=== PATIENT | male | born 1955 | race Caucasian/White ===

== ENCOUNTER 2016-06-18 18:35 | Inpatient (IN) | payer SELFPAY ==
--- NOTE | ~2016-06-18 | CN ---
Consultation Report [facility] [address] [facility] [place]. [address] NAME: BRYAN GODDARD : 53 STATUS : ADM IN [facility]#: [id number] AGE: 60 ADM/REG DATE : 06/18/16 MR#: [id number] REPORT SERV DATE: 06/20/16 DICTATED BY: KEITH PORTER DATE: 06/20/16 REPORT STATUS : Draft TRANSCRIBED BY: MODNikos DATE: 06/20/16 INFECTIOUS DISEASE CONSULT DATE OF CONSULTATION: REFERRING PHYSICIAN: Tim Andersen MD REASON FOR CONSULT: Antibiotic treatment for foot osteomyelitis. HISTORY OF PRESENT ILLNESS: 60 years old white male with history of uncontrolled diabetes. He has some chronic bilateral feet ulcers. A couple of weeks ago, he noticed "bug bites" on the posterior aspect of the right lower calf. His put some cream and they went away. He then noticed swelling in the right foot, followed by foul smelling drainage from an ulceration on the right medial aspect of the first metatarsophalangeal joint area. When the swelling along with redness progressed up to the calf, he came to the hospital. He was admitted on the 06/18/2016. He had purulent drainage from this wound and significant swelling of the foot and lower leg. In the ER, some culture was done from the wound that grew group B Strep and bacillus, as well as blood cultures that were negative. Lab work showed WBC of 11, hemoglobin 12, creatinine 1.1, and glucose 317. He was started on vancomycin, cefepime, and Flagyl. He might have had some fever at home. He had no vomiting, diarrhea, no urinary symptoms, no shortness of breath, no other skin lesions. He has a chronic place on the left earlobe that sometimes ulcerates. He has not been under medical care in a while, although, he knew about the diabetes. He was seen by Dr. Alcazar with surgery. We did some local debridement. No new culture was sent. An MRI was done that showed distal first metatarsal edema and probable osteomyelitis extending to the joint. First metatarsophalangeal joint destruction with edema extending to both adjacent bones, including the proximal phalanx consistent with ostia. The left foot MRI showed just some focal cellulitis in the medial aspect of the first metatarsal bone head, but no real osteomyelitis. Chest x-ray showed no active disease. A right leg ultrasound showed no DVT. An arterial ultrasound is pending. PAST MEDICAL HISTORY: Diabetes, he is unaware of a history of hypertension, GERD. 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 He is . He does not smoke or drink alcohol. FAMILY HISTORY: Hypertension and cancer. ALLERGIES: HE APPARENTLY A CHILD, AND HAD A PENICILLIN SHOT THAT WAS CAUSING SUCH SEVERE PAIN THAT HE COULD NOT BREATHE. HOWEVER, HE HAD NO BODY SWELLING, THROAT SWELLING, RASH, OR ITCHING WITH THAT. MEDICATIONS ON ADMISSION: Just p.r.n. Ibuprofen and lots of supplements. Consultation Report [place] [id number] [facility] [place]. [address] NAME: BRYAN GODDARD : 53 STATUS : ADM IN [facility]#: [id number] AGE: 60 ADM/REG DATE : 06/18/16 MR#: [id number] REPORT SERV DATE: 06/20/16 DICTATED BY: KEITH PORTER DATE: 06/20/16 REPORT STATUS : Draft TRANSCRIBED BY: FRANCISCO JAVIER DATE: 06/20/16 PHYSICAL EXAMINATION: GENERAL: He is alert, awake, not in distress. HEENT: No obvious oral thrush. LUNGS: Clear to auscultation. HEART: Regular rhythm. ABDOMEN: Soft, nontender. NECK: With soft large mass on the left posterior side left earlobe with what looks like a little area of skin adherence at the canthus midportion of the earlobe, but no ulceration or drainage that I can see. EXTREMITIES: Left foot with a 1 to 1.5 cm crater or ulcer surrounded by thick callus at the first metatarsophalangeal joint area on the plantar aspect. Right lower leg and foot edema, especially the right great toe with crevasse over the medial aspect of the first metatarsophalangeal joint area, adjacent skin is thickened, and inflamed. It tunnels deeply at least an inch. LABORATORY DATA: Today, creatinine 0.8. WBC 8. ASSESSMENT/PLAN: 1. Right first metatarsophalangeal joint and adjacent bone osteomyelitis with significant cellulitis of the foot and lower leg. 2. Bilateral chronic plantar ulcers. 3. Uncontrolled diabetes. The only culture I have is the wound culture done in the emergency room that is growing group B Strep. However, with bone involvement, he will need bone debridement to healthy bone for A chance of cure. Antibiotic gardner, we will change to Rocephin and Flagyl for now pending further data. I discussed with the patient and the the above, plus obviously need for diabetes/glycemic control. He has not received any antipneumococcal vaccine or flu vaccine. He does not think he had a tetanus vaccine in the last 10 years. So, I recommended all the above. He definitely does not want flu vaccine and he did not want the Tdap, just a tetanus alone, so, I will order that. AMA/FRANCISCO JAVIER Keith Porter M.D. / [id number] CC: Tim Andersen MD
--- NOTE | ~2016-06-18 | IDS ---
Interim Discharge Summary [facility] [address] [place]. [address] NAME: BRYAN GODDARD : 53 STATUS : ADM IN [facility]#: [id number] AGE: 60 ADM/REG DATE : 06/18/16 MR#: [id number] REPORT SERV DATE: 06/27/16 DICTATED BY: SARAI MARTINEZ DATE: 06/27/16 REPORT STATUS : Draft TRANSCRIBED BY: MODNikos DATE: 06/27/16 ADMISSION DATE: 06/18/2016 DISCHARGE DATE: DIAGNOSES: 1. Right great toe osteomyelitis. 2. Right lower extremity/foot cellulitis, resolved. 3. Type 2 diabetes, uncontrolled. 4. Hypertension. CONSULTANTS: 1. General Surgery, Dr. Derian Alcazar. 2. Infectious Disease specialist, Dr. Keith Cortes. PROCEDURES: 1. I and D of right foot abscess on 06/19/2016. 2. On 06/23/2016, removal of spicules of bone from the right MP joint ulcer by Dr. Derian Alcazar, but no complete amputation. HOSPITAL COURSE: A 60 years old male, with a past medical history of type 2 diabetes, not on any medications for diabetes, presented with right great toe ulcer with cellulitis of the right lower extremity. The patient states that he attempted to care for himself as an outpatient without alleviation of his symptoms. He was admitted to the Hospitalist Service and admitted to initially Dr. Andersen. The patient was placed on IV antibiotics, with a General Surgery consultation with Dr. Derian Alcazar. The patient had a MRI of the bilateral lower extremities and the right lower extremity revealed osteomyelitis of the first digit involving the first metatarsal, and proximal phalanx of the right great toe. Arterial Doppler had normal arterial flow of the both lower extremities. Also, infectious Disease was consulted for assistance with the patient's management. The patient refused surgical intervention of removal of infected bone, although, the patient was educated on multiple times by several physicians Dr. Alcazar, Dr. Cortes, and Hospitalists, concerning recommendations of removal of infected bone, and if not removed can cause progressive of disease or sepsis, or spreading of the infection to other areas and the curative approach is best way for removal of inspected bone, however, the patient still refused as well as the . However, the patient would prefer to only treat with antibiotics at this time. Although, he did consent and allow for the general surgeon to gather small spicules of bone for a repeat culture, but no complete amputation. The repeat culture so far is no growth to date. Although, initial I and D grew out multiple bacteria with the Strep agalactiae group B, Providencia, and bacillus. The patient continues on IV Rocephin. Case management is on board assisting with getting approval for outpatient IV antibiotics. Orders will be written by Dr. Keith Cortes for IV antibiotics with recommendation of six weeks course per Infectious Disease specialist. The patient does not have insurance, therefore, it is being charitied IV antibiotics, for which the patient will have to have come to the Infusion Center daily for IV antibiotics infusion, and on weekends will be set up in the CDU unit for six weeks per Infectious Disease recommendations. However, still awaiting a set up and approval at this time and final orders from Dr. Cortes. Also, the patient has been educated on diabetes Interim Discharge Summary [address] [address] NAME: BRYAN GODDARD : 53 STATUS : ADM IN [facility]#: [id number] AGE: 60 ADM/REG DATE : 06/18/16 MR#: [id number] REPORT SERV DATE: 06/27/16 DICTATED BY: SARAI MARTINEZ DATE: 06/27/16 REPORT STATUS : Draft TRANSCRIBED BY: FRANCISCO JAVIER DATE: 06/27/16 management on several occasions, and he states that he used will be more compliant with his diabetes management. The patient will be once again followed by Dr. Tim Andersen, who will attend to Mr. Goddard's care on 06/28/2016. [facility]/FRANCISCO JAVIER Sarai Martinez M.D. / [id number] CC: Sarai Martinez M.D.
--- NOTE | ~2016-06-18 | CN ---
Consultation Report [facility] [address] [place]. [address] NAME: BRYAN GODDARD : 53 STATUS : ADM IN PAT#: [id number] AGE: 60 ADM/REG DATE : 06/18/16 MR#: [id number] REPORT SERV DATE: 06/19/16 DICTATED BY: TANO ALCAZAR III DATE: 06/19/16 REPORT STATUS : Draft TRANSCRIBED BY: MODL DATE: 06/19/16 SURGERY WOUND HEALING CONSULTATION DATE OF CONSULTATION: 06/19/2016 HISTORY OF PRESENT ILLNESS: The patient is a 60-year-old white male, type 2 diabetic in no real control with no particular treatment for his diabetes ever. He now complains of a two- week history of foul smelling drainage and ulceration in the right foot that has "ruined his shoes." The medial aspect of his right foot has had drainage, swelling, and the entire foot is now swollen with redness and now he has noticed pain for the last two to three days. The drainage has been present for two weeks per his history. The patient has a long history of ulceration on the left foot that has been treated off and on with different medications primarily on his own. This ulcer remains active, but is not draining much or tender or notably infected. The patient is on his feet for his work and says he walks up to five miles a day on no special shoes. PAST MEDICAL HISTORY: He has a history of bronchitis, gastroesophageal reflux disease, hypertension. MEDICINES: His only medicines are Advil and undefined [id number] vitamins and supplements. SOCIAL HISTORY: The patient lives with his and denies alcohol or tobacco use. He has never had gout nor has he had a deep venous thrombosis. Denies any particular injury to his feet or legs, but states that he thinks he was bitten by some type of insect a few days ago, which precipitated some of the leg swelling. The patient has a glucometer, but does not check his blood sugars. FAMILY HISTORY: Noncontributory. REVIEW OF SYSTEMS: Consistent with a stable weight, normal bowel activity. No particular systemic complaints other than some fever and chills of late. PHYSICAL EXAMINATION: GENERAL: The patient is a moderately obese white male, in no acute distress. Alert and oriented x3 with a relatively flat affect. HEENT: Unremarkable without lateralization. NECK: Supple. CHEST: Clear. HEART: Regular rate and rhythm. ABDOMEN: Obese, but soft. EXTREMITIES: Grossly anatomic. The left lower extremity had no swelling and there was a Consultation Report [address] [place]. [address] NAME: BRYAN GODDARD : 53 STATUS : ADM IN PAT#: [id number] AGE: 60 ADM/REG DATE : 06/18/16 MR#: [id number] REPORT SERV DATE: 06/19/16 DICTATED BY: TANO ALCAZAR III DATE: 06/19/16 REPORT STATUS : Draft TRANSCRIBED BY: FRANCISCO JAVIER DATE: 06/19/16 good pedal pulse. The dorsalis pedis and posterior tibial on the left with a small ulceration over the left foot plantar surface at the metatarsophalangeal joint. There is 2.5 x 1 x 0.3 cm. There was dried ulceration and callus tissue with minimal slough. This was a nontender area and did not appear to tunnel. The right foot showed 2 to 3+ edema from the knee to the ankle and 3 to 4+ edema from the ankle distally with distortion of the foot secondary to edema and suspected Charcot changes. On the medial aspect of the right foot at the level of the first metatarsal joint, there was an area of seropurulent drainage that was present with erythema and a 0.4 cm opening at the mid portion at the MP joint level. The patient had bounding pulses. The dorsalis pedis and posterior tibial on the right with significant neuropathy, erythema, and toes were mycotic. The x-ray shows disruption of the first metatarsal phalangeal joint read as gout, but probably relates to significant erosive osteomyelitis. The patient's venous Doppler showed no clot. The patient's Gram stain shows gram-positive cocci in pairs. His hemoglobin A1c is 9+. He is presently on vancomycin, meropenem, and Flagyl for broad-spectrum coverage. IMPRESSION: 1. The patient has a significant diabetic ulcer of the right foot with abscess and plantar space abscess with almost certain osteomyelitis involving the metatarsophalangeal joint at least. 2. Sepsis secondary to the above. 3. Chronic ulcer disease of the left foot, which is a diabetic ulcer that is not acute. 4. 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 The patient also has hypertension and extremely poorly controlled diabetes with which the patient is in complete denial. Recommend incision and drainage with local therapy initially. Culture and sensitivity are pending. It has been done. Continue antibiotic therapy. I have explained to the patient that he will likely require at least an amputation of his great toe and distal metatarsal bone, but may require further amputated therapy and certainly he is at risk for losing his entire right foot due to the acuity and the extent of disease. RB/MODL Tano Alcazar III, M.D. / [id number] CC: Tim Andersen MD
--- NOTE | ~2016-06-18 | OP ---
Record Of Operation [facility] [address] [place]. [address] NAME: BRYAN GODDARD : 53 STATUS : ADM IN PAT#: [id number] AGE: 60 ADM/REG DATE : 06/18/16 MR#: [id number] REPORT SERV DATE: 06/19/16 DICTATED BY: TANO ALCAZAR III DATE: 06/19/16 REPORT STATUS : Draft TRANSCRIBED BY: MODL DATE: 06/19/16 DATE OF PROCEDURE: 06/19/2016 PREOPERATIVE DIAGNOSIS: Abscess of the medial aspect of the right foot in diabetic neuropathic patient with probable osteomyelitis. PROCEDURE: Incision and drainage of a medial right foot abscess into the level of the first metatarsal phalangeal joint bone. No culture and sensitivity were repeated since one had just been done within 24 hours in the same area. POSTOPERATIVE DIAGNOSIS: Probable osteomyelitis of the right foot, which has been confirmed by a debridement evaluation. ESTIMATED BLOOD LOSS: 5 mL. DESCRIPTION OF PROCEDURE: After a time-out and prepping and draping in the routine fashion and no anesthetic due to neuropathy, the area of the right medial foot at the MP joint level was approached and a hemostatic placed between the ulcerated area and the upper portion of the field connecting it with an ulceration in the callused tissue on the plantar surface. These two openings were connected by sharp dissection and instrumentation was used to break up loculations with hemorrhage controlled with packing. The curved hemostat was utilized and could be gently placed into the metatarsophalangeal joint space with instrument palpable, bony tissue clearly evident. The area was then irrigated and packed with a dressing material. Iodosorb gel to be applied and daily treatments instituted. The patient had minimal pain with no anesthesia. A 3-cm incision was utilized and undermining circumferentially broken up 3 cm around the opening and down into the joint of the metatarsophalangeal region on the first level. We will await the patient's MRI for a more thorough treatment plan. The procedure was incision drainage of the medial aspect of right foot abscess at the first metatarsophalangeal joint with control of bleeding, packing, and assessment. RB/FRANCISCO JAVIER Tano Alcazar III, M.D. / [id number] CC: Tim Andersen MD
--- NOTE | ~2016-06-18 | HP ---
History And Physical [place] [id number] [facility] [place]. [address] NAME: BRYAN GODDARD : 53 STATUS : ADM IN [facility]#: [id number] AGE: 60 ADM/REG DATE : 06/18/16 MR#: [id number] REPORT SERV DATE: 06/18/16 DICTATED BY: CHER DANG DATE: 06/18/16 REPORT STATUS : Draft TRANSCRIBED BY: MODL DATE: 06/18/16 DATE OF ADMISSION: 06/18/2016 CHIEF COMPLAINT: Right diabetic foot ulcer with cellulitis and probable osteomyelitis getting progressively worse for couple of weeks and left foot ulcer. HISTORY OF PRESENT ILLNESS: He is a very pleasant 60-year-old gentleman. He does have a history of diabetes, type 2. He has been diagnosed many years ago, but he is not on any medications. He did have history of diabetic foot ulcer. He used to see a optics engineer in the past in [place], but not recently. He had a left foot ulcer for at least one year. According to the patient, he had that right foot ulcer for about the same period of time. According to the patient, it got better and almost healing, but he scratched few weeks ago his right lower extremity and he thinks he got an infection since then. He has not got any medical attention. In fact, he cleans his wounds with peroxide and put Band-Aid, and he took some Advil for pain and intermittent fever; however, for two weeks, he started to drain and foul odor, and he started also to experience pain and swelling. He went today to walk- in clinic and he has been referred to [facility]. He did not have any chest pain or increasing shortness of breath. No PND or orthopnea. He did not have any nausea or vomiting. No diarrhea, or constipation. Some intermittent fevers. He did not have any hematemesis or melena. No hematochezia. No other complaints. The patient has been evaluated in the emergency room and Hospitalist Service has been asked for admission for further evaluation and treatment. PAST MEDICAL HISTORY: Significant for diabetic foot ulcer; diabetes, type 2, uncontrolled; and prior history of hypertension. PAST SURGICAL HISTORY: None. SOCIAL HISTORY: Denies tobacco, alcohol, or IV drugs. ALLERGIES: HE IS ALLERGIC TO PENICILLIN. FAMILY HISTORY: Significant for hypertension and cancer. REVIEW OF SYSTEMS: A 14-point review of systems has been obtained and pertinent positive has been listed into the history of present illness. Otherwise, negative except those underlying above. PHYSICAL EXAMINATION: VITAL SIGNS: The patient currently is afebrile. Blood pressure is 140/96, heart rate 84, respiratory rate 18, saturating 97% on room air. GENERAL: He is a very pleasant, well-developed, well-nourished gentleman, in no acute distress. He is alert and oriented x3. He is nonfocal. He follows commands appropriately. HEENT: Show pupils equal, round, reactive to light. Extraocular movements intact. No JVD. No lymphadenopathy. No thyromegaly appreciated. CHEST: Shows bilateral air entry. Clear anteroposterior. No wheezes, crackles, or rhonchi History And Physical [address] [address] NAME: BRYAN GODDARD : 53 STATUS : ADM IN [facility]#: [id number] AGE: 60 ADM/REG DATE : 06/18/16 MR#: [id number] REPORT SERV DATE: 06/18/16 DICTATED BY: CHER DANG DATE: 06/18/16 REPORT STATUS : Draft TRANSCRIBED BY: FRANCISCO JAVIER DATE: 06/18/16 appreciated. CARDIOVASCULAR: He has regular rate and rhythm. S1, S2 positive. No S3, no S4. No murmurs, rubs, or gallops appreciated. ABDOMEN: Soft with positive bowel sounds. Nontender. No guarding. No rebound. EXTREMITIES: No clubbing, no cyanosis. Plus edema and redness of the right foot and right calf and drain of the right toe wound and toe with significant cellulitis changes. There is also a left foot dry wound ulcer that is clean. No signs of cellulitis. LABORATORY DATA: Sodium 134, potassium 4.2, chloride 98, CO2 of 30, BUN 18, creatinine 1.12, glucose is 317. Total bilirubin 0.3. Alkaline phosphatase 89. ALT 14, AST 10. White count is 11.5, hemoglobin 12.6, hematocrit 37.5, platelets 437. Also blood cultures currently are pending. Wound cultures are pending. Ultrasound of the bilateral lower extremity does not show any evidence of DVT, and x-ray of the right foot shows probable osteomyelitis of the right toe. ASSESSMENT: 1. This is a very pleasant 60-year-old gentleman with right diabetic foot ulcer with significant cellulitis and probable osteomyelitis. 2. Likely right proximal phalanx osteomyelitis. 3. Diabetes, type 2, uncontrolled. 4. Hypertension. PLAN: 1. The patient is going to be admitted to Hospitalist Service. We are going to place the patient on broad-spectrum antibiotics with cefepime, vancomycin, and Flagyl. Wound cultures and Gram stain. Bed rest. We are going to do an MRI of the right lower and left lower extremities. We are going to consult Dr. Alcazar, with whom I talked personally for further evaluation. We are going to check an ESR, CRP, and an arterial Doppler ultrasound. 2. Likely right proximal phalanx osteomyelitis. We will check an MRI. Check an ESR, CRP and await surgery evaluation. We will keep the patient n.p.o. past midnight. 3. Diabetes, type 2, uncontrolled. Check on hemoglobin A1c. Levemir, Accu-Cheks q.6 hours. Sliding scale insulin subcutaneously, level 2. 4. Hypertension. We will provide p.r.n. hydralazine as needed. We will provide reasonable pain and nausea control as well as GI and DVT prophylaxis. That has been discussed extensively with the patient as well as the patient's family. All the questions have been answered in full. Further workup and recommendation pending above. It is worthwhile to note that the patient is going to be followed by Dr. Tim Andersen. JEFF/FRANCISCO JAVIER Cher Dang M.D. History And Physical [address] [address] NAME: BRYAN GODDARD : 53 STATUS : ADM IN [facility]#: [id number] AGE: 60 ADM/REG DATE : 06/18/16 MR#: [id number] REPORT SERV DATE: 06/18/16 DICTATED BY: CHER DANG DATE: 06/18/16 REPORT STATUS : Draft TRANSCRIBED BY: FRANCISCO JAVIER DATE: 06/18/16 / [id number]
--- NOTE | ~2016-06-18 | DS ---
Discharge Summary [address] [address] [place]. [address] NAME: BRYAN GODDARD : 53 STATUS : DIS IN PAT#: [id number] AGE: 60 ADM/REG DATE : 06/18/16 MR#: [id number] REPORT SERV DATE: 06/29/16 DICTATED BY: DATE: REPORT STATUS : Draft TRANSCRIBED BY: MODL DATE: 06/28/16 ADMISSION DATE: 06/18/2016 DISCHARGE DATE: 06/28/2016 DISCHARGE DIAGNOSES: 1. Right great toe osteomyelitis. 2. Right foot cellulitis. 3. Diabetes mellitus type 2, uncontrolled with hemoglobin A1c of 9.2. 4. Hypertension. CONSULTING PHYSICIANS: Include Dr. Keith Cortes, Infectious Disease, as well as Dr. Derian Alcazar. DISCHARGE MEDICATIONS: 1. Cadexomer iodine topical daily. 2. Rocephin 2 g IV q.24 hours x34 days. 3. Collagenase topical daily. 4. Folic acid 1 mg p.o. daily. 5. Novolin N 10 units subcu before breakfast daily. 6. Novolin N 40 units subcu at bedtime. 7. Novolin R 6 units subcu before breakfast. 8. Novolin R 40 units subcu before supper. 9. Lisinopril 10 mg p.o. daily. 10.Multivitamin one tablet p.o. daily. 11.Florastor one cap p.o. b.i.d. 12.Glucophage 500 mg p.o. with breakfast and supper. 13.Flagyl 500 mg p.o. q.8 hours x6 days. 14.Ibuprofen 400 mg p.o. b.i.d. p.r.n. for pain. PROCEDURES: 1. I and D of the right foot abscess. 2. Removal of spicules of bone from the right MP joint ulcer by Dr. Alcazar, but no complete amputation. HOSPITAL COURSE: Please see Dr. Tesha Gramajo's interim discharge summary on 06/27/2016. I assumed care of the patient today on 06/28/[address] Tim Andersen. The patient has refused surgical intervention removal of infected bone, although this was advised multiple times by Dr. Alcazar, Dr. Cortes, and the [facility]. In light of the patient's decision, we will do 34 days of IV Rocephin as an outpatient. He will be followed by Dr. Keith Cortes. The patient received PICC line today, he will receive one more dose of IV Rocephin today at 1600 hours and then starting tomorrow he will come to our [facility]. CLR/MODL Discharge Summary [id number] [place] [id number] NAME: BRYAN GODDARD : 53 STATUS : DIS IN PAT#: [id number] AGE: 60 ADM/REG DATE : 06/18/16 MR#: [id number] REPORT SERV DATE: 06/29/16 DICTATED BY: DATE: REPORT STATUS : Draft TRANSCRIBED BY: MODL DATE: 06/28/16 Gus Sellers NP / [id number] CC: MD Keith Wynn M.D. Robert Barnett III, M.D.
[~2016-06-18 18:35] MED LIST: ADVIL PO; OTC SUPPLEMENTS PO
[2016-06-18 18:55] LABS: BASOPHILS 0.5 %; BASOPHILS ABSOLUTE 0.06 10/3/uL (0.0-0.16); EOSINOPHILS 1.9 %; EOSINOPHILS ABSOLUTE 0.22 10/3/uL (0.0-0.53); ER CBC TAT 0 Hrs 09 Mins; HEMATOCRIT 37.5 % (40.0-51.0); HEMOGLOBIN 12.6 g/dL (13.6-17.8); IMMATURE GRANULOCYTES 0.3 %; LYMPHOCYTES ABSOLUTE 1.95 10/3/uL (0.67-4.30); MEAN CORPUS HGB CONC 33.6 g/dL (32.0-36.0); MEAN CORPUSCULAR HEMOGLOB 29.9 pg (26.0-34.0); MEAN CORPUSCULAR VOLUME 88.9 fL (80-100); MEAN PLATELET VOLUME 10.1 fL (9.2-13.0); MONOCYTES 7.2 %; MONOCYTES ABSOLUTE 0.83 10/3/uL (0.21-1.20); NEUTROPHILS 73.1 %; PLATELET COUNT 434 10/3/uL (150-400); RBC DISTRIBUTION WIDTH 14.2 % (12.0-16.0); RED CELL COUNT 4.22 10/6/uL (4.7-6.1); WHITE BLOOD CELLS 11.5 10/3/uL (4.5-10.5)
[2016-06-18 18:56] LABS: IMMATURE GRANULOCYTES ABSOLUTE 0.03 10/3/uL (0.0-0.11); MANUAL DIFF NO %
[2016-06-18 19:13] LABS: A/G RATIO 0.4 (0.7-1.9); ALBUMIN 2.6 G/DL (3.5-5.0); ALKALINE PHOSPHATASE 89 U/L (45-117); BUN (BLOOD UREA NITROGEN) 18 MG/DL (6-23); CALCIUM, SERUM 8.7 MG/DL (8.5-10.4); CHLORIDE, SERUM 98 MMOL/L (96-112); CO2 (CARBON DIOXIDE) 30 MMOL/L (24-34); CREATININE 1.12 MG/DL (0.70-1.30); GFR AFRICAN AMERICAN 82 ML/MIN (>=60); GFR NON AFRICAN AMERICAN 71 ML/MIN (>=60); GLOBULIN 5.9 G/DL (2.5-4.1); GLUCOSE, SERUM 317 MG/DL (60-99); POTASSIUM, SERUM 4.2 MMOL/L (3.5-5.3); SGOT(AST) 10 U/L (5-40); SGPT(ALT) 14 U/L (5-65); SODIUM, SERUM 134 MMOL/L (135-148); TOTAL BILIRUBIN 0.3 MG/DL (0-1.2); TOTAL PROTEIN 8.5 G/DL (6.0-8.5)
[2016-06-18 19:19] LABS: BAND NEUTROPHILS 10 %; EOSINOPHILS 1 %; EOSINOPHILS ABSOLUTE (CALC) 0.12 10/3/uL (0.0-0.53); ER DIFF TAT 0 Hrs 33 Mins; LYMPHOCYTES 11 %; LYMPHOCYTES ABSOLUTE (CALC) 1.27 10/3/uL (0.67-4.30); MONOCYTES 7 %; MONOCYTES ABSOLUTE (CALC) 0.81 10/3/uL (0.21-1.20); NEUTROPHILS ABSOLUTE (CALC) 9.32 10/3/uL (2.02-8.40); PLATELET ESTIMATE ADQ (ADEQUATE); SEGMENTED NEUTROPHIL (0) 71 %; TOTAL NUCLEATED CELLS 100
[2016-06-18 21:32] LABS: PROCALCITONIN <0.05 ng/mL (<0.5)
[2016-06-19 00:17] LABS: INTERNATIONAL NORMAL RATI 1.3 UNITS (-); PARTIAL THROMBO TIME 30.2 SEC (22.5-37.2)
[2016-06-19 00:48] LABS: FREE T4 1.24 NG/DL (0.76-1.46); PHOSPHORUS, SERUM 2.3 MG/DL (2.5-4.5); TOTAL BILIRUBIN 0.3 MG/DL (0-1.2); ULTRASENSITIVE TSH 2.01 MCIU/ML (0.358-3.740)
[2016-06-19 00:49] LABS: FOLATE 16.5 NG/ML (>5.2)
[2016-06-19 01:08] LABS: C-REACTIVE PROTEIN 71.1 MG/L (<8.0)
[2016-06-19 07:52] LABS: BASOPHILS 0.4 %; BASOPHILS ABSOLUTE 0.04 10/3/uL (0.0-0.16); EOSINOPHILS 2.4 %; EOSINOPHILS ABSOLUTE 0.23 10/3/uL (0.0-0.53); HEMATOCRIT 34.8 % (40.0-51.0); HEMOGLOBIN 11.9 g/dL (13.6-17.8); IMMATURE GRANULOCYTES 0.3 %; IMMATURE GRANULOCYTES ABSOLUTE 0.03 10/3/uL (0.0-0.11); LYMPHOCYTES 16.9 %; LYMPHOCYTES ABSOLUTE 1.65 10/3/uL (0.67-4.30); MEAN CORPUS HGB CONC 34.2 g/dL (32.0-36.0); MEAN CORPUSCULAR HEMOGLOB 29.8 pg (26.0-34.0); MEAN PLATELET VOLUME 9.8 fL (9.2-13.0); MONOCYTES 8.6 %; MONOCYTES ABSOLUTE 0.84 10/3/uL (0.21-1.20); NEUTROPHILS 71.4 %; NEUTROPHILS ABSOLUTE 6.96 10/3/uL (2.02-8.40); PLATELET COUNT 385 10/3/uL (150-400); RBC DISTRIBUTION WIDTH 14.2 % (12.0-16.0); WHITE BLOOD CELLS 9.8 10/3/uL (4.5-10.5)
[2016-06-19 07:55] LABS: MANUAL DIFF NO %
[2016-06-19 07:57] LABS: INTERNATIONAL NORMAL RATI 1.3 UNITS (-); PARTIAL THROMBO TIME 31.4 SEC (22.5-37.2); PROTIME (NOT ORD) 15.6 SEC (12.0-14.5)
[2016-06-19 08:07] LABS: A/G RATIO 0.4 (0.7-1.9); ALBUMIN 2.3 G/DL (3.5-5.0); ALKALINE PHOSPHATASE 65 U/L (45-117); BUN (BLOOD UREA NITROGEN) 12 MG/DL (6-23); CALCIUM, SERUM 8.3 MG/DL (8.5-10.4); CHLORIDE, SERUM 101 MMOL/L (96-112); CO2 (CARBON DIOXIDE) 29 MMOL/L (24-34); CREATININE 0.83 MG/DL (0.70-1.30); GFR AFRICAN AMERICAN 110 ML/MIN (>=60); GFR NON AFRICAN AMERICAN 95 ML/MIN (>=60); GLOBULIN 5.4 G/DL (2.5-4.1); GLUCOSE, SERUM 190 MG/DL (60-99); POTASSIUM, SERUM 3.8 MMOL/L (3.5-5.3); SGOT(AST) 11 U/L (5-40); SGPT(ALT) 13 U/L (5-65); SODIUM, SERUM 136 MMOL/L (135-148); TOTAL BILIRUBIN 0.5 MG/DL (0-1.2); TOTAL PROTEIN 7.7 G/DL (6.0-8.5)
[2016-06-20 07:14] LABS: BASOPHILS 0.8 %; BASOPHILS ABSOLUTE 0.07 10/3/uL (0.0-0.16); EOSINOPHILS 2.3 %; HEMATOCRIT 37.6 % (40.0-51.0); HEMOGLOBIN 12.6 g/dL (13.6-17.8); IMMATURE GRANULOCYTES 0.1 %; IMMATURE GRANULOCYTES ABSOLUTE 0.01 10/3/uL (0.0-0.11); LYMPHOCYTES 15.4 %; LYMPHOCYTES ABSOLUTE 1.36 10/3/uL (0.67-4.30); MEAN CORPUS HGB CONC 33.5 g/dL (32.0-36.0); MEAN CORPUSCULAR HEMOGLOB 29.5 pg (26.0-34.0); MEAN CORPUSCULAR VOLUME 88.1 fL (80-100); MEAN PLATELET VOLUME 9.5 fL (9.2-13.0); MONOCYTES 9.6 %; MONOCYTES ABSOLUTE 0.85 10/3/uL (0.21-1.20); NEUTROPHILS 71.8 %; NEUTROPHILS ABSOLUTE 6.32 10/3/uL (2.02-8.40); PLATELET COUNT 419 10/3/uL (150-400); RBC DISTRIBUTION WIDTH 14.1 % (12.0-16.0); RED CELL COUNT 4.27 10/6/uL (4.7-6.1); WHITE BLOOD CELLS 8.8 10/3/uL (4.5-10.5)
[2016-06-20 07:16] LABS: MANUAL DIFF NO %
[2016-06-20 07:27] LABS: BUN (BLOOD UREA NITROGEN) 12 MG/DL (6-23); CALCIUM, SERUM 8.7 MG/DL (8.5-10.4); CHLORIDE, SERUM 102 MMOL/L (96-112); CO2 (CARBON DIOXIDE) 28 MMOL/L (24-34); CREATININE 0.84 MG/DL (0.70-1.30); GFR AFRICAN AMERICAN 110 ML/MIN (>=60); GFR NON AFRICAN AMERICAN 95 ML/MIN (>=60); GLUCOSE, SERUM 163 MG/DL (60-99); PHOSPHORUS, SERUM 2.7 MG/DL (2.5-4.5); POTASSIUM, SERUM 4.1 MMOL/L (3.5-5.3); SODIUM, SERUM 136 MMOL/L (135-148)
[2016-06-20 07:41] LABS: PREALBUMIN 12.7 MG/DL (17.0-43.0)
[2016-06-21 03:32] LABS: BASOPHILS 0.7 %; BASOPHILS ABSOLUTE 0.06 10/3/uL (0.0-0.16); EOSINOPHILS 2.6 %; EOSINOPHILS ABSOLUTE 0.22 10/3/uL (0.0-0.53); HEMATOCRIT 37.7 % (40.0-51.0); HEMOGLOBIN 12.7 g/dL (13.6-17.8); IMMATURE GRANULOCYTES 0.2 %; IMMATURE GRANULOCYTES ABSOLUTE 0.02 10/3/uL (0.0-0.11); LYMPHOCYTES 18.1 %; LYMPHOCYTES ABSOLUTE 1.53 10/3/uL (0.67-4.30); MEAN CORPUS HGB CONC 33.7 g/dL (32.0-36.0); MEAN CORPUSCULAR HEMOGLOB 29.6 pg (26.0-34.0); MEAN CORPUSCULAR VOLUME 87.9 fL (80-100); MEAN PLATELET VOLUME 9.5 fL (9.2-13.0); MONOCYTES 11.2 %; MONOCYTES ABSOLUTE 0.95 10/3/uL (0.21-1.20); NEUTROPHILS 67.2 %; NEUTROPHILS ABSOLUTE 5.67 10/3/uL (2.02-8.40); PLATELET COUNT 415 10/3/uL (150-400); RED CELL COUNT 4.29 10/6/uL (4.7-6.1); WHITE BLOOD CELLS 8.5 10/3/uL (4.5-10.5)
[2016-06-21 03:34] LABS: MANUAL DIFF NO %
[2016-06-21 03:46] LABS: BUN (BLOOD UREA NITROGEN) 13 MG/DL (6-23); CALCIUM, SERUM 8.8 MG/DL (8.5-10.4); CHLORIDE, SERUM 100 MMOL/L (96-112); CO2 (CARBON DIOXIDE) 28 MMOL/L (24-34); GFR AFRICAN AMERICAN 106 ML/MIN (>=60); GFR NON AFRICAN AMERICAN 92 ML/MIN (>=60); GLUCOSE, SERUM 155 MG/DL (60-99); PHOSPHORUS, SERUM 3.1 MG/DL (2.5-4.5); SODIUM, SERUM 137 MMOL/L (135-148); VANCOMYCIN TROUGH 15.4 MCG/ML (10.0-20.0)
[2016-06-22 05:16] LABS: BASOPHILS 0.7 %; BASOPHILS ABSOLUTE 0.07 10/3/uL (0.0-0.16); EOSINOPHILS 1.4 %; EOSINOPHILS ABSOLUTE 0.13 10/3/uL (0.0-0.53); HEMOGLOBIN 12.6 g/dL (13.6-17.8); IMMATURE GRANULOCYTES 0.3 %; IMMATURE GRANULOCYTES ABSOLUTE 0.03 10/3/uL (0.0-0.11); LYMPHOCYTES 18.9 %; LYMPHOCYTES ABSOLUTE 1.82 10/3/uL (0.67-4.30); MEAN CORPUS HGB CONC 33.2 g/dL (32.0-36.0); MEAN CORPUSCULAR HEMOGLOB 29.3 pg (26.0-34.0); MEAN CORPUSCULAR VOLUME 88.4 fL (80-100); MEAN PLATELET VOLUME 9.6 fL (9.2-13.0); MONOCYTES 10.2 %; MONOCYTES ABSOLUTE 0.98 10/3/uL (0.21-1.20); NEUTROPHILS 68.5 %; NEUTROPHILS ABSOLUTE 6.59 10/3/uL (2.02-8.40); PLATELET COUNT 428 10/3/uL (150-400); RBC DISTRIBUTION WIDTH 14.4 % (12.0-16.0); WHITE BLOOD CELLS 9.6 10/3/uL (4.5-10.5)
[2016-06-22 05:18] LABS: MANUAL DIFF NO %
[2016-06-22 05:29] LABS: BUN (BLOOD UREA NITROGEN) 15 MG/DL (6-23); CALCIUM, SERUM 9.1 MG/DL (8.5-10.4); CHLORIDE, SERUM 101 MMOL/L (96-112); CO2 (CARBON DIOXIDE) 28 MMOL/L (24-34); CREATININE 0.91 MG/DL (0.70-1.30); GFR AFRICAN AMERICAN 105 ML/MIN (>=60); GFR NON AFRICAN AMERICAN 91 ML/MIN (>=60); GLUCOSE, SERUM 138 MG/DL (60-99); PHOSPHORUS, SERUM 3.3 MG/DL (2.5-4.5); POTASSIUM, SERUM 4.2 MMOL/L (3.5-5.3); SODIUM, SERUM 137 MMOL/L (135-148)
[2016-06-23 05:29] LABS: BASOPHILS 0.6 %; BASOPHILS ABSOLUTE 0.05 10/3/uL (0.0-0.16); EOSINOPHILS 1.3 %; EOSINOPHILS ABSOLUTE 0.12 10/3/uL (0.0-0.53); HEMATOCRIT 40.7 % (40.0-51.0); HEMOGLOBIN 13.5 g/dL (13.6-17.8); IMMATURE GRANULOCYTES 0.3 %; IMMATURE GRANULOCYTES ABSOLUTE 0.03 10/3/uL (0.0-0.11); LYMPHOCYTES 23.2 %; MEAN CORPUS HGB CONC 33.2 g/dL (32.0-36.0); MEAN CORPUSCULAR HEMOGLOB 29.5 pg (26.0-34.0); MEAN CORPUSCULAR VOLUME 88.9 fL (80-100); MEAN PLATELET VOLUME 9.7 fL (9.2-13.0); MONOCYTES 9.8 %; MONOCYTES ABSOLUTE 0.89 10/3/uL (0.21-1.20); NEUTROPHILS 64.8 %; NEUTROPHILS ABSOLUTE 5.88 10/3/uL (2.02-8.40); PLATELET COUNT 431 10/3/uL (150-400); RBC DISTRIBUTION WIDTH 14.5 % (12.0-16.0); RED CELL COUNT 4.58 10/6/uL (4.7-6.1); WHITE BLOOD CELLS 9.1 10/3/uL (4.5-10.5)
[2016-06-23 05:34] LABS: MANUAL DIFF NO %
[2016-06-23 05:53] LABS: BUN (BLOOD UREA NITROGEN) 18 MG/DL (6-23); CALCIUM, SERUM 9.1 MG/DL (8.5-10.4); CHLORIDE, SERUM 102 MMOL/L (96-112); CO2 (CARBON DIOXIDE) 27 MMOL/L (24-34); CREATININE 0.98 MG/DL (0.70-1.30); GFR AFRICAN AMERICAN 96 ML/MIN (>=60); GFR NON AFRICAN AMERICAN 83 ML/MIN (>=60); GLUCOSE, SERUM 134 MG/DL (60-99); PHOSPHORUS, SERUM 3.2 MG/DL (2.5-4.5); POTASSIUM, SERUM 4.2 MMOL/L (3.5-5.3); SODIUM, SERUM 138 MMOL/L (135-148)
[2016-06-24 05:11] LABS: BASOPHILS 0.5 %; BASOPHILS ABSOLUTE 0.06 10/3/uL (0.0-0.16); EOSINOPHILS 1.2 %; EOSINOPHILS ABSOLUTE 0.13 10/3/uL (0.0-0.53); HEMATOCRIT 39.1 % (40.0-51.0); IMMATURE GRANULOCYTES 0.4 %; IMMATURE GRANULOCYTES ABSOLUTE 0.04 10/3/uL (0.0-0.11); LYMPHOCYTES ABSOLUTE 2.21 10/3/uL (0.67-4.30); MEAN CORPUS HGB CONC 33.2 g/dL (32.0-36.0); MEAN CORPUSCULAR HEMOGLOB 29.7 pg (26.0-34.0); MEAN CORPUSCULAR VOLUME 89.5 fL (80-100); MEAN PLATELET VOLUME 9.6 fL (9.2-13.0); MONOCYTES 10.3 %; MONOCYTES ABSOLUTE 1.14 10/3/uL (0.21-1.20); NEUTROPHILS 67.6 %; NEUTROPHILS ABSOLUTE 7.46 10/3/uL (2.02-8.40); PLATELET COUNT 354 10/3/uL (150-400); RBC DISTRIBUTION WIDTH 14.7 % (12.0-16.0); RED CELL COUNT 4.37 10/6/uL (4.7-6.1)
[2016-06-24 05:14] LABS: CALCIUM, SERUM 8.5 MG/DL (8.5-10.4); CHLORIDE, SERUM 100 MMOL/L (96-112); CREATININE 1.12 MG/DL (0.70-1.30); GFR AFRICAN AMERICAN 82 ML/MIN (>=60); GFR NON AFRICAN AMERICAN 71 ML/MIN (>=60); PHOSPHORUS, SERUM 3.4 MG/DL (2.5-4.5); SODIUM, SERUM 132 MMOL/L (135-148)
[2016-06-24 05:20] LABS: MANUAL DIFF NO %
[2016-06-24 05:46] LABS: BUN (BLOOD UREA NITROGEN) 23 MG/DL (6-23); CO2 (CARBON DIOXIDE) 22 MMOL/L (24-34); GLUCOSE, SERUM 107 MG/DL (60-99); POTASSIUM, SERUM 4.7 MMOL/L (3.5-5.3)
[2016-06-25 07:25] LABS: BASOPHILS 0.5 %; BASOPHILS ABSOLUTE 0.05 10/3/uL (0.0-0.16); EOSINOPHILS 1.5 %; EOSINOPHILS ABSOLUTE 0.14 10/3/uL (0.0-0.53); HEMATOCRIT 39.1 % (40.0-51.0); HEMOGLOBIN 13.2 g/dL (13.6-17.8); IMMATURE GRANULOCYTES 0.3 %; IMMATURE GRANULOCYTES ABSOLUTE 0.03 10/3/uL (0.0-0.11); LYMPHOCYTES 18.5 %; LYMPHOCYTES ABSOLUTE 1.71 10/3/uL (0.67-4.30); MEAN CORPUS HGB CONC 33.8 g/dL (32.0-36.0); MEAN CORPUSCULAR HEMOGLOB 29.9 pg (26.0-34.0); MEAN CORPUSCULAR VOLUME 88.7 fL (80-100); MEAN PLATELET VOLUME 9.5 fL (9.2-13.0); MONOCYTES 8.9 %; MONOCYTES ABSOLUTE 0.82 10/3/uL (0.21-1.20); NEUTROPHILS 70.3 %; NEUTROPHILS ABSOLUTE 6.47 10/3/uL (2.02-8.40); PLATELET COUNT 367 10/3/uL (150-400); RBC DISTRIBUTION WIDTH 14.7 % (12.0-16.0); RED CELL COUNT 4.41 10/6/uL (4.7-6.1); WHITE BLOOD CELLS 9.2 10/3/uL (4.5-10.5)
[2016-06-25 07:27] LABS: MANUAL DIFF NO %
[2016-06-25 07:36] LABS: BUN (BLOOD UREA NITROGEN) 25 MG/DL (6-23); CALCIUM, SERUM 8.7 MG/DL (8.5-10.4); CHLORIDE, SERUM 102 MMOL/L (96-112); CO2 (CARBON DIOXIDE) 26 MMOL/L (24-34); CREATININE 1.07 MG/DL (0.70-1.30); GFR AFRICAN AMERICAN 86 ML/MIN (>=60); GFR NON AFRICAN AMERICAN 75 ML/MIN (>=60); GLUCOSE, SERUM 115 MG/DL (60-99); POTASSIUM, SERUM 4.4 MMOL/L (3.5-5.3); SODIUM, SERUM 136 MMOL/L (135-148)
[2016-06-26 06:42] LABS: HEMATOCRIT 41.5 % (40.0-51.0); HEMOGLOBIN 13.9 g/dL (13.6-17.8); MEAN CORPUS HGB CONC 33.5 g/dL (32.0-36.0); MEAN CORPUSCULAR VOLUME 89.4 fL (80-100); PLATELET COUNT 299 10/3/uL (150-400); RBC DISTRIBUTION WIDTH 15.2 % (12.0-16.0); RED CELL COUNT 4.64 10/6/uL (4.7-6.1)
[2016-06-26 06:43] LABS: MANUAL DIFF YES %
[2016-06-26 06:47] LABS: BUN (BLOOD UREA NITROGEN) 22 MG/DL (6-23); CALCIUM, SERUM 8.9 MG/DL (8.5-10.4); CHLORIDE, SERUM 103 MMOL/L (96-112); CO2 (CARBON DIOXIDE) 22 MMOL/L (24-34); CREATININE 0.98 MG/DL (0.70-1.30); GFR AFRICAN AMERICAN 96 ML/MIN (>=60); GFR NON AFRICAN AMERICAN 83 ML/MIN (>=60); GLUCOSE, SERUM 113 MG/DL (60-99); PHOSPHORUS, SERUM 2.8 MG/DL (2.5-4.5); POTASSIUM, SERUM 4.6 MMOL/L (3.5-5.3); SODIUM, SERUM 134 MMOL/L (135-148)
[2016-06-26 07:47] LABS: BAND NEUTROPHILS 1 %; EOSINOPHILS 4 %; EOSINOPHILS ABSOLUTE (CALC) 0.36 10/3/uL (0.0-0.53); LYMPHOCYTES 14 %; LYMPHOCYTES ABSOLUTE (CALC) 1.26 10/3/uL (0.67-4.30); MONOCYTES 8 %; MONOCYTES ABSOLUTE (CALC) 0.72 10/3/uL (0.21-1.20); NEUTROPHILS ABSOLUTE (CALC) 6.66 10/3/uL (2.02-8.40); PLATELET ESTIMATE ADQ (ADEQUATE); RBC MORPHOLOGY NORM (NORMAL); SEGMENTED NEUTROPHIL (0) 73 %; TOTAL NUCLEATED CELLS 100
[2016-06-27 07:20] LABS: BASOPHILS 0.6 %; BASOPHILS ABSOLUTE 0.05 10/3/uL (0.0-0.16); EOSINOPHILS ABSOLUTE 0.17 10/3/uL (0.0-0.53); HEMATOCRIT 39.7 % (40.0-51.0); HEMOGLOBIN 13.3 g/dL (13.6-17.8); IMMATURE GRANULOCYTES 0.5 %; IMMATURE GRANULOCYTES ABSOLUTE 0.04 10/3/uL (0.0-0.11); LYMPHOCYTES 19.4 %; LYMPHOCYTES ABSOLUTE 1.64 10/3/uL (0.67-4.30); MANUAL DIFF NO %; MEAN CORPUS HGB CONC 33.5 g/dL (32.0-36.0); MEAN CORPUSCULAR HEMOGLOB 29.9 pg (26.0-34.0); MEAN CORPUSCULAR VOLUME 89.2 fL (80-100); MEAN PLATELET VOLUME 9.5 fL (9.2-13.0); MONOCYTES 11.9 %; MONOCYTES ABSOLUTE 1.01 10/3/uL (0.21-1.20); NEUTROPHILS 65.6 %; NEUTROPHILS ABSOLUTE 5.56 10/3/uL (2.02-8.40); PLATELET COUNT 333 10/3/uL (150-400); RBC DISTRIBUTION WIDTH 15.1 % (12.0-16.0); RED CELL COUNT 4.45 10/6/uL (4.7-6.1); WHITE BLOOD CELLS 8.5 10/3/uL (4.5-10.5)
[2016-06-27 07:33] LABS: CALCIUM, SERUM 8.9 MG/DL (8.5-10.4); CHLORIDE, SERUM 100 MMOL/L (96-112); CREATININE 1.08 MG/DL (0.70-1.30); GFR AFRICAN AMERICAN 85 ML/MIN (>=60); GFR NON AFRICAN AMERICAN 74 ML/MIN (>=60); GLUCOSE, SERUM 105 MG/DL (60-99); PHOSPHORUS, SERUM 3.3 MG/DL (2.5-4.5); POTASSIUM, SERUM 4.7 MMOL/L (3.5-5.3); SODIUM, SERUM 133 MMOL/L (135-148)
[2016-06-27 07:34] LABS: BUN (BLOOD UREA NITROGEN) 26 MG/DL (6-23); CO2 (CARBON DIOXIDE) 27 MMOL/L (24-34)
[2016-06-28 06:39] LABS: BASOPHILS 0.8 %; BASOPHILS ABSOLUTE 0.06 10/3/uL (0.0-0.16); EOSINOPHILS 1.5 %; EOSINOPHILS ABSOLUTE 0.11 10/3/uL (0.0-0.53); HEMATOCRIT 40.1 % (40.0-51.0); HEMOGLOBIN 13.2 g/dL (13.6-17.8); IMMATURE GRANULOCYTES 0.5 %; IMMATURE GRANULOCYTES ABSOLUTE 0.04 10/3/uL (0.0-0.11); LYMPHOCYTES 23.3 %; MANUAL DIFF NO %; MEAN CORPUS HGB CONC 32.9 g/dL (32.0-36.0); MEAN CORPUSCULAR HEMOGLOB 29.2 pg (26.0-34.0); MEAN CORPUSCULAR VOLUME 88.7 fL (80-100); MEAN PLATELET VOLUME 9.7 fL (9.2-13.0); MONOCYTES 9.9 %; MONOCYTES ABSOLUTE 0.72 10/3/uL (0.21-1.20); NEUTROPHILS ABSOLUTE 4.66 10/3/uL (2.02-8.40); PLATELET COUNT 344 10/3/uL (150-400); RBC DISTRIBUTION WIDTH 15.2 % (12.0-16.0); RED CELL COUNT 4.52 10/6/uL (4.7-6.1); WHITE BLOOD CELLS 7.3 10/3/uL (4.5-10.5)
[2016-06-28 06:51] LABS: CHLORIDE, SERUM 99 MMOL/L (96-112); CO2 (CARBON DIOXIDE) 27 MMOL/L (24-34); CREATININE 1.02 MG/DL (0.70-1.30); GFR AFRICAN AMERICAN 92 ML/MIN (>=60); GFR NON AFRICAN AMERICAN 79 ML/MIN (>=60); GLUCOSE, SERUM 113 MG/DL (60-99); PHOSPHORUS, SERUM 2.9 MG/DL (2.5-4.5); POTASSIUM, SERUM 4.3 MMOL/L (3.5-5.3); SODIUM, SERUM 134 MMOL/L (135-148)
[2016-06-28 06:52] LABS: BUN (BLOOD UREA NITROGEN) 20 MG/DL (6-23)
[2016-06-28] MEDS ORDERED: MVI PO (15:22)
[2016-06-28] MEDS ORDERED: FOLIC PO (15:22)
[2016-06-28] MEDS ORDERED: FLORASTOR250 MG PO (15:23)
[2016-06-28] MEDS ORDERED: INSNOVR SC ×2 (15:23→15:24)
[2016-06-28] MEDS ORDERED: INSNOVN SC ×2 (15:24→15:25)
[2016-06-28] MEDS ORDERED: FLAG500TAB PO (15:26)
[2016-06-28] MEDS ORDERED: CEFT5 PO (15:26)
[2016-06-28] MEDS ORDERED: PRIN10 PO (15:26)
[2016-06-28] MEDS ORDERED: GLUCPH PO (15:27)
== END 2016-06-28 18:16 | disposition home or self-care (01) | DRG 854 ==
LOC: ER 18:35 → 5SO 20:48
PROVIDERS: Emergency Medicine; Internal Medicine
PROC: 0S9 Lower Joints, Drainage (ICD-10-PCS; principal; 2016-06-19)
PROC: 02HV33Z Insertion of Infusion Device into Superior Vena Cava, Percutaneous Approach (ICD-10-PCS; 2016-06-28)
PROC: 4A02X4A Measurement of Cardiac Electrical Activity, Guidance, External Approach (ICD-10-PCS; 2016-06-28)
DX: A41.9 Sepsis, unspecified organism (principal); M86.8X7 Other osteomyelitis, ankle and foot; E11.42 Type 2 diabetes mellitus with diabetic polyneuropathy; E11.621 Type 2 diabetes mellitus with foot ulcer; L03.115 Cellulitis of right lower limb; I10 Essential (primary) hypertension; Z88.0 Allergy status to penicillin; Z82.49 Family history of ischemic heart disease and other diseases of the circulatory system; Z80.8 Family history of malignant neoplasm of other organs or systems; Z79.899 Other long term (current) drug therapy; E11.65 Type 2 diabetes mellitus with hyperglycemia; E66.9 Obesity, unspecified
CPT/HCPCS: 36569; 71010; 73630-RT; 73718-LT; 73718-RT; 80048; 80053; 80202; 82247; 82607; 82728; 82746; 82962; 83036; 83540; 83605; 83615; 83735; 84100; 84134; 84145; 84439; 84443; 84550; 85025; 85610; 85652; 85730; 86140; 87040; 87070; 87075; 87077; 87102; 87186; 87205; 90714; 93005; 93925; 93971; 96374; 96375; 97161-GP; 99285; A9270-GY; C1751; G8978-CH-GP; G8979-CH-GP; G8980-CH-GP; J0692; J3370